=== PATIENT | male | born 1970 | race Caucasian/White ===

== ENCOUNTER 2020-06-06 18:38 | Emergency (ER) | payer OTHER ==
[2020-06-06 18:44] VITALS: TEMP 97.8; BMI 37.7
[2020-06-06 20:16] LABS: HEMOGLOBIN 14.5 GM/dl (11.7-16.9); MEAN CELL VOLUME 92.4 fl (80-96)
[2020-06-06 20:19] LABS: BASO % 2.5 % (0-2.0); EOS % 4.1 % (0-4.5); HEMATOCRIT 41.1 % (35.4-49); LYMPH % 36.6 % (8-40); MCH 32.5 pg (25.7-33.7); MCHC 35.2 g/dl (32.0-35.9); MEAN PLT VOLUME 10.1 fl (7.5-11.1); MONO % 7.9 % (3.8-10.2); NEUT % 48.9 % (42.8-82.8); PLATELET COUNT 247 K/MM3 (134-434); RBC 4.45 M/mm3 (4.00-5.60); RDW 12.6 % (11.9-15.9); WHITE BLOOD COUNT 7.5 K/mm3 (4.0-10.8)
[2020-06-06 20:28] LABS: ALBUMIN 3.8 g/dl (3.4-5.0); BILIRUBIN,TOTAL 0.1 mg/dl (0.2-1); CALCIUM 8.6 mg/dl (8.5-10); CREATININE 0.8 mg/dl (0.55-1.3); POTASSIUM 4.1 mmol/L (3.5-5.1); TOT PROT 6.4 g/dl (6.4-8.2)
[2020-06-06 21:13] VITALS: BP 111/74; PULSE 73
== END 2020-06-06 21:15 | disposition home or self-care (01) ==
LOC: FER 18:38
DX: R07.89 Other chest pain (principal)
CPT/HCPCS: 36415; 80053; 82550; 82553; 84484; 85025; 93005; 99284-25